=== PATIENT | female | born 1955 | race Caucasian/White ===

== ENCOUNTER 2016-06-18 15:32 | Inpatient (IN) | payer OTHER ==
[~2016-06-18] VITALS: Ht 152.4 cm; Wt 50.6 kg
[~2016-06-18 15:32] MED LIST: ADVAIR HFA120 INHALA IH; ASPIRIN EC325 MG PO; BACTRIM,SEPT1 TABLE1 PO; CARDIZEM CD,CA180 MG PO; CARDIZEM CD180 MG PO; CELLCEPT250 MG PO; CIPROFLOXACIN250 MG PO; COZAAR25 MG PO; DIAZEPAM10 MG PO; DIAZEPAM5 MG PO; KEFLEX500 MG PO; LASIX40 MG PO; LEVAQUIN500 MG PO; LIPITOR20 MG PO; MEGACE 40 MG40 MG/ML PO; METOPROLOL TART25 MG PO; METRONIDAZOLE500 MG PO; MYCOPHENOLATE250 MG PO; OMEPRAZOLE20 MG PO; OXYCODONE HCL10 MG PO; OXYCONTIN10 MG PO; PAIN & FEVER500 MG PO; PAXIL10 MG PO; PRILOSEC20 MG PO; PROAIR HFA8.5 GM IH; PROGRAF0.5 MG PO; PROGRAF1 MG PO; Sodium Bicarbonate PO; VALCYTE450 MG PO; VALIUM5 MG PO; VENTOLIN HFA18 GM IH; VICODIN 5-3001 EACH PO; VITAMIN D31000 UNIT PO; ZOLOFT25 MG
[2016-06-18 17:37] LABS: HEMATOCRIT 30.6 % (36.0-46.0); MCH 29.9 PG (29.0-34.0); MCHC 30.4 G/DL (30.0-36.0); MCV 98.4 FL (83-99); MEAN PLAT.VOLUME 12.6 uM^3 (9.5-12.4); PLATELET COUNT 95 K/uL (156-360); RBC DIS.WIDTH-CV 19.5 % (11.8-14.6); RED BLOOD COUNT 3.11 M/uL (3.80-5.20); WHITE BLOOD COUNT 5.1 K/uL (4.1-10.2)
[2016-06-18 17:44] LABS: EOSINOPHIL (%) 4.7 % (0-5); EOSINOPHIL COUNT 0.2 K/uL (0-0.3); LYMPHOCYTE COUNT 0.9 K/uL (1.0-2.8); MONOCYTE (%) 6.7 % (3-12); MONOCYTE COUNT 0.3 K/uL (0-0.8); NEUTROPHIL (%) 70.3 % (45-76); NEUTROPHIL COUNT 3.6 K/uL (1.8-6.4)
[2016-06-18 17:47] LABS: CHLORIDE 91 mEq/L (99-109); POTASSIUM 3.3 mEq/L (3.7-5.4); SODIUM 136 mEq/L (136-147)
[2016-06-18 17:49] LABS: GLUCOSE 98 mg/dL (70-99)
[2016-06-18 17:50] LABS: ANION GAP 12 MEQ/L (2-14)
[2016-06-18 17:51] LABS: TOTAL BILIRUBIN 3.1 mg/dL (0.0-1.0)
[2016-06-18 17:52] LABS: ALKALINE PHOSPHATASE 253 IU/L (3-129)
[2016-06-18 17:53] LABS: GFR ESTIMATE (CALCULATED) 18 mL/min/
[2016-06-18 17:54] LABS: UREA NITROGEN (BUN) 18 mg/dL (9-23)
[2016-06-18 22:37] VITALS: BP 95/64
[2016-06-19 06:49] LABS: ALKALINE PHOSPHATASE 222 IU/L (3-129); ANION GAP 12 MEQ/L (2-14); CHLORIDE 94 MEQ/L (99-109); GFR ESTIMATE (CALCULATED) 18 mL/min/; POTASSIUM 3.2 MEQ/L (3.7-5.4); SAMPLE HEMOLYSIS CHECK 0; SAMPLE ICTERIC CHECK 1; SAMPLE LIPEMIA CHECK 0; SODIUM 138 MEQ/L (136-147); TOTAL BILIRUBIN 3.5 MG/DL (0.0-1.0); UREA NITROGEN (BUN) 23 mg/dL (9-23)
[2016-06-19 07:01] LABS: TROP-I INTERPRETATION NEGATIVE; TROPONIN-I 0.16 ng/mL (0.0-0.30)
[2016-06-19 07:28] LABS: GLUCOSE 43 mg/dL (70-99)
[2016-06-19 07:36] VITALS: BP 96/53
[2016-06-19 12:08] VITALS: BP 100/60
[2016-06-19 14:15] LABS: TROP-I INTERPRETATION NEGATIVE
[2016-06-19 16:25] LABS: POINT-OF-CARE METER ID UU14149397
[2016-06-19 19:40] VITALS: BP 92/51
[2016-06-19 22:19] LABS: TROP-I INTERPRETATION NEGATIVE
[2016-06-19 23:47] VITALS: BP 86/54
[2016-06-20 04:00] VITALS: BP 88/55
[2016-06-20 08:13] VITALS: BP 111/50
[2016-06-20 08:23] LABS: ANION GAP 15 MEQ/L (2-14); CHLORIDE 96 MEQ/L (99-109); SAMPLE HEMOLYSIS CHECK 0; SAMPLE ICTERIC CHECK 1; SAMPLE LIPEMIA CHECK 0; SODIUM 136 MEQ/L (136-147); UREA NITROGEN (BUN) 30 mg/dL (9-23)
[2016-06-20 08:24] LABS: GFR ESTIMATE (CALCULATED) 15 mL/min/; GLUCOSE 132 mg/dL (70-99); VANCOMYCIN, TROUGH 14.1 MCG/ML (10-20)
[2016-06-20 08:49] LABS: EOSINOPHIL COUNT 0.2 K/uL (0-0.3); HEMATOCRIT 29.3 % (36.0-46.0); LYMPHOCYTE COUNT 0.8 K/uL (1.0-2.8); MCH 30.4 PG (29.0-34.0); MCHC 31.4 G/DL (30.0-36.0); MCV 96.7 FL (83-99); MONOCYTE (%) 6.5 % (3-12); MONOCYTE COUNT 0.3 K/uL (0-0.8); NEUTROPHIL (%) 70.3 % (45-76); NEUTROPHIL COUNT 3.2 K/uL (1.8-6.4); PLAT.SUFFICIENCY DECREASED; RBC DIS.WIDTH-CV 20.1 % (11.8-14.6); RBC DIS.WIDTH-SD 70.8 % (39-53); RED BLOOD COUNT 3.03 M/uL (3.80-5.20); USER ID SDF; WHITE BLOOD COUNT 4.5 K/uL (4.1-10.2)
[2016-06-20 08:55] LABS: PLATELET COUNT 58 K/uL (156-360)
[2016-06-20 11:54] VITALS: BP 99/64
[2016-06-20 12:39] LABS: POINT-OF-CARE METER ID UU14149397
[2016-06-20] MEDS ORDERED: Chronulac,Cephulac,E PO (12:57)
[2016-06-20] MEDS ORDERED: ADVAIR HFA120 INHALA IH (12:57)
[2016-06-20] MEDS ORDERED: TRAMADOL HCL50 MG PO (12:57)
[2016-06-20] MEDS ORDERED: TACROLIMUS ANH0.5 MG PO (12:57)
[2016-06-20] MEDS ORDERED: Zeasorb Antifungal T TP (12:57)
[2016-06-20] MEDS ORDERED: LORAZEPAM2 MG/1 M1 IM (12:57)
[2016-06-20] MEDS ORDERED: VANCOMYCIN HCL1 GM IV (12:57)
[2016-06-20] MEDS ORDERED: MIDODRINE HCL5 MG PO (12:57)
[2016-06-20] MEDS ORDERED: ONDANSETRON4 MG/2 ML IV (12:57)
[2016-06-20] MEDS ORDERED: XIFAXAN550 MG PO (12:57)
[2016-06-20 18:22] VITALS: BP 97/55
[2016-06-20 19:40] VITALS: BP 105/62
[2016-06-21 00:13] VITALS: BP 89/58
[2016-06-21 04:03] VITALS: BP 97/57
[2016-06-21 08:11] VITALS: BP 107/64
[2016-06-21 09:16] LABS: ANION GAP 15 MEQ/L (2-14); CHLORIDE 94 MEQ/L (99-109); GLUCOSE 176 mg/dL (70-99); SAMPLE HEMOLYSIS CHECK 0; SAMPLE ICTERIC CHECK 1; SAMPLE LIPEMIA CHECK 0; SODIUM 135 MEQ/L (136-147); UREA NITROGEN (BUN) 16 mg/dL (9-23)
[2016-06-21 09:21] LABS: GFR ESTIMATE (CALCULATED) 23 mL/min/; POTASSIUM 4.9 MEQ/L (3.7-5.4)
[2016-06-21 15:32] VITALS: BP 109/67
[2016-06-21 23:32] VITALS: BP 110/68
[2016-06-22 06:47] LABS: ANION GAP 15 MEQ/L (2-14); CHLORIDE 93 MEQ/L (99-109); POTASSIUM 4.3 MEQ/L (3.7-5.4); SAMPLE HEMOLYSIS CHECK 0; SAMPLE ICTERIC CHECK 0; SAMPLE LIPEMIA CHECK 0; SODIUM 133 MEQ/L (136-147); UREA NITROGEN (BUN) 22 mg/dL (9-23)
[2016-06-22 06:55] LABS: GFR ESTIMATE (CALCULATED) 18 mL/min/; GLUCOSE 94 mg/dL (70-99); VANCOMYCIN, TROUGH 14.6 MCG/ML (10-20)
[2016-06-22 07:39] VITALS: BP 106/68
[2016-06-22 12:39] LABS: MCH 31.1 PG (29.0-34.0); MCHC 32.9 G/DL (30.0-36.0); MCV 94.6 FL (83-99); PLATELET COUNT 67 K/uL (156-360); RBC DIS.WIDTH-CV 19.7 % (11.8-14.6); RBC DIS.WIDTH-SD 67.6 % (39-53); RED BLOOD COUNT 2.96 M/uL (3.80-5.20)
[2016-06-22 14:57] VITALS: BP 106/62
== END 2016-06-22 15:14 | DRG 939 ==
LOC: EME 15:32 → EDOF 18:12 → 3EAST 18:12
PROVIDERS: Internal Medicine; Pediatrics; Physician Assistant
PROC: 037Y3ZZ Dilation of Upper Artery, Percutaneous Approach (ICD-10-PCS; principal; 2016-06-19)
DX: T82.858D Stenosis of other vascular prosthetic devices, implants and grafts, subsequent encounter (principal); N18.6 End stage renal disease; J18.9 Pneumonia, unspecified organism; T86.12 Kidney transplant failure; T82.838A Hemorrhage due to vascular prosthetic devices, implants and grafts, initial encounter; N17.9 Acute kidney failure, unspecified; I12.0 Hypertensive chronic kidney disease with stage 5 chronic kidney disease or end stage renal disease; F32.9 Major depressive disorder, single episode, unspecified; K74.60 Unspecified cirrhosis of liver; I48.91 Unspecified atrial fibrillation; E87.6 Hypokalemia; K72.90 Hepatic failure, unspecified without coma; Z66 Do not resuscitate; Z86.73 Personal history of transient ischemic attack (TIA), and cerebral infarction without residual deficits; I95.89 Other hypotension; I50.9 Heart failure, unspecified; I77.0 Arteriovenous fistula, acquired; Z95.810 Presence of automatic (implantable) cardiac defibrillator
CPT/HCPCS: 71010; 71020; 80053; 80069; 80202; 81003; 82140; 82948; 83605; 84484; 85025; 85027; 87040; 87070; 87205; 94640; 94640 76; 94799; 99281; 99285; C1725; C1769; C1894; J0690; J0696; J1644; J2060; J2250; J2405; J2543; J3010; J3370; J7040; J7050; J7507